=== PATIENT | male | born 1970 | race African-American/Black ===

== ENCOUNTER 2020-08-09 11:32 | Emergency (ER) | payer MEDICAID ==
[~2020-08-09] VITALS: Ht 190.5 cm; Wt 79.0 kg
[2020-08-09 12:55] LABS: CLARITY URINE CLOUDY (CLEAR); COLOR URINE ORANGE (YELLOW); KETONES URINE TRACE (NEGATIVE); LEUKOCYTE ESTERASE URINE 2+ (NEGATIVE); NITRITE URINE NEGATIVE (NEGATIVE); OCCULT BLOOD URINE 3+ (NEGATIVE); PH URINE 6.5 (4.5-8.0); PROTEIN URINE 2+ (NEGATIVE); SPECIFIC GRAVITY URINE 1.025 (1.005-1.030)
[2020-08-09 14:39] LABS: BASOPHILS % 0.5 % (0.0-2.0); HEMOGLOBIN. 16.4 g/dL (14.0-18.0); LYMPHOCYTES % 22.6 % (20.0-50.0); MEAN CORPUSCULAR HEMOGLOBIN 31.2 pg (28.0-32.0); MEAN CORPUSCULAR VOLUME 89.6 fL (80.0-94.0); MONOCYTES % 7.6 % (2.0-8.0); NEUTROPHILS % 68.3 % (40.0-76.0); PLATELET 232 x1000/uL (130-400); RED BLOOD CELL COUNT 5.25 mill/uL (4.7-6.1); RED CELL DISTRIBUTION WIDTH 12.7 % (11.6-14.6)
[2020-08-09 14:45] LABS: CHLORIDE 105 mEq/L (98-107)
[2020-08-09 14:53] LABS: CREATINE KINASE 157 IU/L (39-308)
[2020-08-09 15:00] VITALS: BP 115/80
[2020-08-09] MEDS ORDERED: DOXY100C2 MT (15:13)
[2020-08-09] MEDS ORDERED: CEFTRIAXONE SODIUM 500 MG/VIAL IM ONE (15:15)
[2020-08-09] MEDS ORDERED: DOXYCYCLINE HYCLATE 100MG CAPSULE PO ONE (15:15)
[2020-08-09] MEDS ORDERED: LIDOCAINE HCL 1% 20ML VIAL (Pyxis) INJ INFIL ONE (15:15)
[2020-08-12 08:08] LABS: NEISSERIA GONORRHOEAE NAA Negative (Negative)
== END 2020-08-09 16:14 | disposition home or self-care (01) ==
LOC: ER 11:32
DX: R31.9 Hematuria, unspecified (principal); R30.0 Dysuria; Z93.0 Tracheostomy status; Z87.828 Personal history of other (healed) physical injury and trauma
CPT/HCPCS: 36415; 80053; 81003; 82550; 85025; 87077; 87086; 87186; 87491; 87591; 96372; 99283; J0696; J3490

== ENCOUNTER 2022-03-07 02:50 | Emergency (ER) | payer MEDICAID ==
[~2022-03-07] VITALS: Ht 185.4 cm; Wt 90.0 kg
[~2022-03-07 02:50] MED LIST: DOXY100C5 MT
[2022-03-07] MEDS ORDERED: ONDANSETRON HCL 4MG/2ML INJ IV STA (03:27)
[2022-03-07] MEDS ORDERED: SODIUM CHLORIDE 0.9% 1,000 ML IV ONE (03:30)
[2022-03-07 03:52] LABS: BASOPHILS % 0.8 % (0.0-2.0); EOSINOPHILS % 0.2 % (0.0-5.0); HEMATOCRIT. 49.2 % (42.0-52.0); HEMOGLOBIN. 16.8 g/dL (14.0-18.0); LYMPHOCYTES % 15.4 % (20.0-50.0); MEAN CORPUSCULAR HEMOGLOBIN 30.9 pg (28.0-32.0); MEAN CORPUSCULAR VOLUME 90.7 fL (80.0-94.0); MEAN PLATELET VOLUME 7.2 fl (7.4-10.4); MONOCYTES % 10.1 % (2.0-8.0); NEUTROPHILS % 73.5 % (40.0-76.0); PLATELET 241 x1000/uL (130-400); RED BLOOD CELL COUNT 5.43 mill/uL (4.7-6.1); RED CELL DISTRIBUTION WIDTH 13.6 % (11.6-14.6)
[2022-03-07 04:13] LABS: PROTHROMBIN TIME 10.3 sec (9.6-11.0)
[2022-03-07 04:20] LABS: CHLORIDE 103 mEq/L (98-107)
[2022-03-07 04:27] LABS: ETHANOL BLOOD < 10 mg/dL
[2022-03-07] MEDS ORDERED: ONDA4TAB50 MT (05:51)
[2022-03-07] MEDS ORDERED: ACET-2708 MT (05:51)
[2022-03-07 05:53] LABS: CLARITY URINE CLEAR (CLEAR); COLOR URINE YELLOW (YELLOW); KETONES URINE TRACE (NEGATIVE); LEUKOCYTE ESTERASE URINE TRACE (NEGATIVE); NITRITE URINE NEGATIVE (NEGATIVE); OCCULT BLOOD URINE NEGATIVE (NEGATIVE); PROTEIN URINE 2+ (NEGATIVE); SPECIFIC GRAVITY URINE 1.025 (1.005-1.030); UROBILINOGEN URINE 0.2 E.U./dL (0.2-1.0)
[2022-03-07 06:19] LABS: *AMPHETAMINES SCREEN URINE PRESUMTIVE POSITIVE (NEGATIVE); *BARBITURATES SCREEN URINE NEGATIVE (NEGATIVE); *BENZODIAZEPINES SCREEN URINE NEGATIVE (NEGATIVE); *COCAINE SCREEN URINE NEGATIVE (NEGATIVE); CANNABINOID URINE SCREEN NEGATIVE (NEGATIVE); METHADONE URINE SCREEN NEGATIVE (NEGATIVE); OPIATES URINE SCREEN NEGATIVE (NEGATIVE); PHENCYCLIDINE URINE SCREEN NEGATIVE (NEGATIVE)
[2022-03-07 08:30] VITALS: BP 132/78
== END 2022-03-07 09:38 | disposition home or self-care (01) ==
LOC: ER 02:50
DX: R55 Syncope and collapse (principal); F15.90 Other stimulant use, unspecified, uncomplicated; M25.512 Pain in left shoulder; Z13.9 Encounter for screening, unspecified
CPT/HCPCS: 36415; 70450; 71045; 73030; 80053; 80305; 80320; 81003; 83690; 85025; 85610; 93005; 96374; 99285; J2405; J7030; G0480